=== PATIENT | female | born 1980 | race African-American/Black ===

== ENCOUNTER 2017-08-04 13:34 | Emergency (ER) | payer MEDICAID, OTHER ==
[~2017-08-04] VITALS: Ht 157.5 cm; Wt 75.0 kg
[2017-08-04] MEDS ORDERED: IBUPROFEN 600MG TABLET PO ONE (18:00)
[2017-08-04] MEDS ORDERED: HYDROCODONE/ACETAMINOPHEN 5/325MG TABLET PO ONE (18:00)
[2017-08-04 19:54] VITALS: BP 120/73
== END 2017-08-04 19:55 | disposition home or self-care (01) ==
LOC: ER 13:34
DX: R07.2 Precordial pain (principal); R06.02 Shortness of breath; Z88.0 Allergy status to penicillin
CPT/HCPCS: 71020; 81025; 93005; 99284